=== PATIENT | female | born 1985 | race American Indian/Alaskan Native ===

== ENCOUNTER 2019-03-22 12:49 | Emergency (ER) | payer MEDICAID ==
[~2019-03-22] VITALS: Ht 162.6 cm; Wt 95.8 kg
[2019-03-22 13:22] VITALS: BP 141/67
[2019-03-22] MEDS ORDERED: dexamethasone 4mg tablet PO ONE (15:25)
[2019-03-22] MEDS ORDERED: penicillin G benzathine 1.2 million unit/2ml syringe IM ONE (15:25)
[2019-03-22] MEDS ORDERED: diphenhydrAMINE 25 MG/10 ML UD oral solution PO ONE (15:25)
== END 2019-03-22 17:19 | disposition home or self-care (01) ==
LOC: ER 12:49
DX: J02.0 Streptococcal pharyngitis (principal); Z90.49 Acquired absence of other specified parts of digestive tract; Z98.890 Other specified postprocedural states
CPT/HCPCS: 87880; 96372; 99283; J0561; J8540; Q0163

== ENCOUNTER 2019-07-05 15:02 | Emergency (ER) | payer MEDICAID ==
[~2019-07-05] VITALS: Ht 162.6 cm; Wt 93.2 kg
[2019-07-05 15:20] VITALS: BP 144/93
[2019-07-05] MEDS ORDERED: triamcinolone acetonide 40mg/ml inj IM ONE (15:55)
[2019-07-05] MEDS ORDERED: dexamethasone 4mg tablet PO ONE (15:55)
== END 2019-07-05 16:18 | disposition home or self-care (01) ==
LOC: ER 15:02
DX: S40.022A Contusion of left upper arm, initial encounter (principal); L98.9 Disorder of the skin and subcutaneous tissue, unspecified; Z90.49 Acquired absence of other specified parts of digestive tract; W57.XXXA Bitten or stung by nonvenomous insect and other nonvenomous arthropods, initial encounter; Y93.89 Activity, other specified; Y92.89 Other specified places as the place of occurrence of the external cause; Y99.8 Other external cause status
CPT/HCPCS: 96372; 99283; J3301

== ENCOUNTER 2020-07-31 01:36 | Emergency (ER) | payer MEDICAID ==
[~2020-07-31] VITALS: Ht 162.6 cm; Wt 98.3 kg
[2020-07-31 03:31] VITALS: BP 160/90
== END 2020-07-31 03:33 | disposition home or self-care (01) ==
LOC: ER 01:37
DX: M79.601 Pain in right arm (principal); F17.200 Nicotine dependence, unspecified, uncomplicated; Z98.890 Other specified postprocedural states; W18.39XA Other fall on same level, initial encounter; Y93.89 Activity, other specified; Y92.89 Other specified places as the place of occurrence of the external cause; Y99.8 Other external cause status
CPT/HCPCS: 73090; 99283

== ENCOUNTER 2020-09-26 16:48 | Emergency (ER) | payer MEDICAID ==
[~2020-09-26] VITALS: Ht 162.6 cm; Wt 95.9 kg
[2020-09-26 19:51] VITALS: BP 139/86
== END 2020-09-26 20:45 | disposition home or self-care (01) ==
LOC: ER 16:49
DX: S13.9XXA Sprain of joints and ligaments of unspecified parts of neck, initial encounter (principal); S43.401A Unspecified sprain of right shoulder joint, initial encounter; R10.30 Lower abdominal pain, unspecified; R11.0 Nausea; M25.511 Pain in right shoulder; Z90.89 Acquired absence of other organs; Z90.49 Acquired absence of other specified parts of digestive tract; Z88.8 Allergy status to other drugs, medicaments and biological substances; V89.2XXA Person injured in unspecified motor-vehicle accident, traffic, initial encounter; Y93.89 Activity, other specified; Y92.89 Other specified places as the place of occurrence of the external cause; Y99.8 Other external cause status
CPT/HCPCS: 99282

== ENCOUNTER 2020-11-18 00:52 | Emergency (ER) | payer MEDICAID ==
[~2020-11-18] VITALS: Ht 162.6 cm; Wt 97.5 kg
[2020-11-18] MEDS ORDERED: acetaminophen 325mg tablet PO ONE (01:10)
--- NOTE | 2020-11-18 02:07 | NUR ---
AWAITING [facility] US.
--- NOTE | 2020-11-18 02:20 | NUR ---
reports pt will be placed in a knee immobilizer and given crutches. he will order xray of l knee and l thumb (pt bitten). Pt given ice pack for left eye and left knee. Also given warm blankets and l knee supported with pillow. vss. reports no need to have pt on routine vs monitorning. Awaiting US.
[2020-11-18] MEDS ORDERED: bacitracin 15gm ointment TP ONE (02:55)
[2020-11-18] MEDS ORDERED: TETanus/Pertussis (Acell)/Diphther VAC/PF (Tdap-Adult) 0.5ml syringe IMVAC ONE (02:55)
[2020-11-18] MEDS ORDERED: AMOX-117 PO (02:59)
[2020-11-18 04:04] VITALS: BP 112/79
== END 2020-11-18 04:09 | disposition home or self-care (01) ==
LOC: ER 00:53
DX: S83.105A Unspecified dislocation of left knee, initial encounter (principal); S80.02XA Contusion of left knee, initial encounter; O26.91 Pregnancy related conditions, unspecified, first trimester; R10.30 Lower abdominal pain, unspecified; M25.562 Pain in left knee; M79.645 Pain in left finger(s); Z3A.09 9 weeks gestation of pregnancy; Z20.3 Contact with and (suspected) exposure to rabies; Z90.89 Acquired absence of other organs; Z90.49 Acquired absence of other specified parts of digestive tract; Z88.8 Allergy status to other drugs, medicaments and biological substances; Z79.2 Long term (current) use of antibiotics; Y08.89XA Assault by other specified means, initial encounter; Y93.89 Activity, other specified; Y92.89 Other specified places as the place of occurrence of the external cause; Y99.8 Other external cause status
CPT/HCPCS: 29125; 29505; 73140; 73564; 76805; 90471; 99284

== ENCOUNTER 2020-11-26 14:01 | Emergency (ER) | payer MEDICAID ==
[~2020-11-26] VITALS: Ht 162.6 cm; Wt 95.3 kg
[~2020-11-26 14:01] MED LIST: AMOX-117 PO
[2020-11-26 16:00] VITALS: BP 128/75
== END 2020-11-26 16:03 | disposition home or self-care (01) ==
LOC: ER 14:02
DX: O26.891 Other specified pregnancy related conditions, first trimester (principal); M25.462 Effusion, left knee; R20.2 Paresthesia of skin; R10.9 Unspecified abdominal pain; Z3A.14 14 weeks gestation of pregnancy; Z90.49 Acquired absence of other specified parts of digestive tract; Z88.8 Allergy status to other drugs, medicaments and biological substances; Z79.899 Other long term (current) drug therapy
CPT/HCPCS: 76805; 99284

== ENCOUNTER → 2023-07-27 | Emergency (ER) | payer MEDICAID ==
[~2023-07-27] VITALS: Ht 162.6 cm; Wt 95.4 kg
[2023-07-27 19:43] VITALS: BP 160/104; PULSE 82; RESP 18; TEMP 97.7; O2SAT 98
== END | disposition left against medical advice (07) ==
LOC: ER 19:37
DX: R42 Dizziness and giddiness (principal); R51.9 Headache, unspecified; R11.0 Nausea; Z53.21 Procedure and treatment not carried out due to patient leaving prior to being seen by health care provider
CPT/HCPCS: 99281

== ENCOUNTER 2024-12-29 20:52 | Emergency (ER) | payer MEDICAID ==
[~2024-12-29] VITALS: Ht 162.6 cm; Wt 105.1 kg
[2024-12-29 21:45] LABS: URINE HCG NEGATIVE (NEG)
[2024-12-29 21:47] LABS: BILIRUBIN,URINE NEGATIVE (Neg); CLARITY,URINE CLEAR (Clear); COLOR,URINE YELLOW (Yellow); GLUCOSE, URINE NEGATIVE (Neg); KETONES,URINE NEGATIVE (Neg); LEUKOCYTE ESTERASE ,URINE NEGATIVE (Neg); NITRITES, URINE NEGATIVE (Neg); OCCULT BLOOD,URINE SMALL (Neg); PROTEIN,URINE NEGATIVE (Neg); UROBILINOGEN,URINE 0.2 E.U/dL (0.2-1.0)
[2024-12-29 21:51] LABS: UA COLLECTION TYPE CLN CATCH MIDSTREAM
[2024-12-29 21:53] LABS: BACTERIA,URINE 1+ /HPF (Neg); MUCUS STRANDS FEW /LPF (Neg); SQUAMOUS EPITHELIAL CELL,UR FEW /LPF (FEW); TRANSITIONAL EPI CELLS,URINE FEW /HPF; WBC,URINE 0-4 /HPF (0-4)
[2024-12-29 21:59] LABS: BASOPHILS # (AUTO) 0.1 X10'3 (0-0.2); BASOPHILS % (AUTO) 0.5 % (0-1); EOSINOPHILS # (AUTO) 0.2 X10'3 (0-0.9); EOSINOPHILS % (AUTO) 1.4 % (0-6); HEMATOCRIT 38.9 % (35.0-45.0); HEMOGLOBIN 12.8 g/dl (12.0-16.0); LYMPHOCYTES # (AUTO) 4.4 X10'3 (1.1-4.8); MEAN CORPUSCULAR HEMOGLOBIN 27.1 PG (27.0-31.0); MEAN CORPUSCULAR HGB CONC 32.8 g/dL (33.0-36.5); MEAN CORPUSCULAR VOLUME 82.8 FL (78-98); MEAN PLATELET VOLUME 8.7 FL (7.4-10.4); MONOCYTES # (AUTO) 0.7 X10'3 (0-0.9); MONOCYTES % (AUTO) 5.3 % (2-12); NEUTROPHILS % (AUTO) 56.8 % (42-75); PLATELET COUNT 332 X10'3 (140-440); RED CELL DISTRIBUTION WIDTH 13.8 % (11.5-14.5); WHITE BLOOD COUNT 12.3 X10'3 (4.5-11.0)
[2024-12-29 22:26] LABS: ALANINE AMINOTRANSFERASE 48 U/L (12-78); ALBUMIN 3.9 G/DL (3.4-5.0); ALKALINE PHOSPHATASE 109 IU/L (46-116); ANION GAP 8 (8-16); ASPARTATE AMINO TRANSFERASE 12 U/L (10-37); BILIRUBIN,TOTAL 0.3 MG/DL (0.1-1.0); BLOOD UREA NITROGEN 18 MG/DL (7-18); BUN/CREATININE RATIO 25.4 (10.0-20.0); CHLORIDE 102 MMOL/L (99-107); CREATININE 0.71 MG/DL (0.40-0.90); GLUCOSE 109 MG/DL (70-104); LIPASE 38 U/L (16-77); POTASSIUM 3.6 MMOL/L (3.5-5.1); SODIUM 139 MMOL/L (135-145); TOTAL CARBON DIOXIDE 28.9 MMOL/L (24-32); TOTAL PROTEIN 7.9 G/DL (6.4-8.2); eCRCL 93 ML/MIN; eGFR > 90 ML/MIN
[2024-12-29 23:01] LABS: HCG SERUM QL NEGATIVE
[2024-12-29] MEDS: normal saline 1000ml 1,000 ML IV ONE (23:42)
[2024-12-29] MEDS: ketorolac trometh 15mg/ml vial 15 MG/ML ML IV ONE (23:45)
[2024-12-30] MEDS: hyDRALAzine 10mg tablet PO ONE (00:31)
[2024-12-30 01:00] VITALS: BP 143/96; PULSE 74; RESP 16; TEMP 97.4; O2SAT 97
== END 2024-12-30 01:06 | disposition home or self-care (01) ==
LOC: ER 20:53
DX: M54.50 Low back pain, unspecified (principal)
CPT/HCPCS: 36415; 74176; 80053; 81001; 81025; 83690; 84703; 85025; 93005; 96361; 96374; 99285; J1885; J7030